=== PATIENT | female | born 1980 | race Caucasian/White ===

== ENCOUNTER → 2017-10-27 | Day surgery (SDC) | payer OTHER ==
[2017-10-23 14:15] VITALS: BMI 24.0
[~2017-10-27] VITALS: Ht 167.6 cm; Wt 69.1 kg
[~2017-10-27] MED LIST: ATROPINE SULFATE 0.1 MG/ML 5ML SYR IV PRN; CLON0.5T20 PO; EpHEDrine SULFATE INJ 50 MG/ML AMP IV PRN; LIDOCAINE HCL 2% 2 ML VIAL (20MG/ML) ONE; PHENERGAN PO; PHENYLEPHRINE 100MCG/ML 5ML SYR ONE; PROPOFOL IV EMULSION 10 MG/ML 20 ML VIAL IV ONE; SODIUM CHLORIDE 0.9% 500ML 500 ML IV ONE; SUCR1TAB29 PO; WELLBUTRIN PO; ZOFRAN PO
[2017-10-27 15:02] VITALS: Ht 167.6 cm; Wt 69.1 kg
[2017-10-27 15:09] VITALS: TEMP 36.3
--- NOTE | 2017-10-27 16:03 | Endo History and Physical ---
History & Physical Date of Service: Oct 27, 2017. Chief Complaint: ABD PAIN/DIARRHEA/WEIGHT LOSS/VOMITING Referring Physician: DR PIERCE History of Present Illness 37 yo CF who presents for Colonoscopy secondary to abdominal pain, diarrhea, and weight loss. Past Surgical History Hx Cardiac Surgery: No Hx Internal Defibrillator: No Hx Pacemaker: No Hx Abdominal Surgery: Yes (APPY, X 2, LAPAROSCOPY X 2) Hx of Implantable Prosthesis: No Hx Post-Op Nausea and Vomiting: No Hx Cancer Surgery: No Hx Thoracic Surgery: No Hx Orthopedic: No Hx Urinary Tract Surgery: No Family History IBD Social History Smoking Status: Current Every Day Smoker Hx Substance Use: No Hx Alcohol Use: Yes (OCCASIONALLY/SOCIALLY) Allergies Coded Allergies: Morphine (Verified Allergy, Unknown, SOB AND DIFFICULT BREATHING WITH CHEST PRESSURE, 10/27/17) Shrimp (Verified Allergy, Unknown, SWELLING, 10/27/17) Current Medications Reported Home Medications Medications Dose Route/Sig Max Daily Dose Days Date Category Dose Instructions Carafate (Sucralfate) 1 Gm Tab 1 Gm PO QID 10/23/17 Reported [Zofran] 1 Tab PO Q8H PRN 10/23/17 Reported [Phenergan] 1 Tab PO Q6H PRN 10/23/17 Reported [Wellbutrin] 1 Tab PO QAM 10/23/17 Reported UNSURE OF DOSE Clonazepam Odt (Clonazepam) 0.5 Mg Tab 0.5 Mg PO BID 10/23/17 Reported Vital Signs Weight (Kilograms): 69.09 Height (Feet): 5 Height (Inches): 6 Date Time Temp Pulse Resp B/P (MAP) Pulse Ox O2 Delivery O2 Flow Rate FiO2 10/27/17 15:09 36.3 71 16 106/57 (73) 100 Room Air Physical Exam General Appearance: WD/WN, no apparent distress Respiratory/Chest: Auscultation: breath sounds normal Cardiovascular: Heart Auscultation: RRR Abdomen: Bowel Sounds: normal Inspection & Palpation: soft, non-distended, no tenderness, guarding & rebound Assessment and Plan Assessment: 37 yo CF who presents for Colonoscopy secondary to abdominal pain, diarrhea, and weight loss. Plan: Proceed with colonoscopy.
--- NOTE | 2017-10-27 16:40 | Discharge Instructions ---
Endoscopy Patient Instructions Date / Procedure(s) Performed Oct 27, 2017. Colonoscopy Allergy Information Coded Allergies: Morphine (Verified Allergy, Unknown, SOB AND DIFFICULT BREATHING WITH CHEST PRESSURE, 10/27/17) Shrimp (Verified Allergy, Unknown, SWELLING, 10/27/17) Discharge Date / Findings Oct 27, 2017. Colon polyps Random colon biopsies Stool studies collected Internal hemorrhoids Medication Instructions OK to resume all medications today as prescribed Reported Home Medications Medications Dose Route/Sig Max Daily Dose Days Date Category Dose Instructions Carafate (Sucralfate) 1 Gm Tab 1 Gm PO QID 10/23/17 Reported [Zofran] 1 Tab PO Q8H PRN 10/23/17 Reported [Phenergan] 1 Tab PO Q6H PRN 10/23/17 Reported [Wellbutrin] 1 Tab PO QAM 10/23/17 Reported UNSURE OF DOSE Clonazepam Odt (Clonazepam) 0.5 Mg Tab 0.5 Mg PO BID 10/23/17 Reported Provider Instructions Activity Restrictions - No exercising or heavy lifting for 24 hours. - Do not drink alcohol the day of the procedure. - Do not drive a car or operate machinery until the day after the procedure. - Do not make any important decisions or sign important papers in 24 hours after the procedure. Following Day: - Return to full activity which may include returning to work/school. Diet Start your diet with liquids and light foods (jello, soup, juice, toast). Then eat your usual diet if not nauseated. Treatment For Common After Affects For mild abdominal pain, bloating, or excessive gas: - Rest - Eat lightly - Lie on right side Follow-Up Information Follow-up with DR PIERCE as scheduled Anesthesia Information What You Should Know You have had a procedure that required some medicine to reduce anxiety and discomfort. This treatment is called moderate sedation. After receiving the treatment, you may be sleepy, but you will be able to breathe on your own. The effects of the treatment may last for several hours. Follow these instructions along with Activity/Diet recommendations noted above: * Do NOT do anything where dizziness or clumsiness would be dangerous. * Rest quietly at home today, then you can be up and about tomorrow. * Have a responsible person stay with you the rest of today. * You may have had an I.V. today. If so, you may take the dressing off later today. Recommendations Call your doctor if: * Trouble breathing * Continuous vomiting for more than 24 hours * Temperature above 101 degrees * Severe abdominal pain or bloating * Pain not relieved by pain medicine ordered * There is increased drainage or redness from any incision * A large amount of rectal bleeding greater than 2-3 tablespoons. (If you had a polyp/s removed or have hemorrhoids, a small amount of blood - from the rectum is to be expected.) * You have any unanswered questions or concerns. IN THE EVENT OF A SERIOUS EMERGENCY, GO TO THE NEAREST EMERGENCY ROOM Your discharge instructions were prepared by provider Jordan Wilson. Patient Instructions Signature Page Meseret Estrada Patient (or Guardian) Signature/Date: I have read and understand the instructions given to me by my caregivers. Caregiver/RN/Doctor Signature/Date: The above-named patient and/or guardian has received patient instructions on this date. + Original Patient Signature Page (only) stays with chart. Please make copy for patient.
--- NOTE | 2017-10-27 16:44 | GI REPORT ---
Procedure Date: 10/27/2017 3:37 PM Procedure: Colonoscopy Indications: Generalized abdominal pain, Chronic diarrhea, Weight loss Medicines: Monitored Anesthesia Care Complications: No immediate complications. Estimated Blood Loss: Estimated blood loss: none. Procedure: Pre-Anesthesia Assessment: - Prior to the procedure, a History and Physical was performed, and patient medications and allergies were reviewed. The patient's tolerance of previous anesthesia was also reviewed. The risks and benefits of the procedure and the sedation options and risks were discussed with the patient. All questions were answered, and informed consent was obtained. Prior Anticoagulants: The patient has taken no previous anticoagulant or antiplatelet agents. ASA Grade Assessment: II - A patient with mild systemic disease. After reviewing the risks and benefits, the patient was deemed in satisfactory condition to undergo the procedure. After I obtained informed consent, the scope was passed under direct vision. Throughout the procedure, the patient's blood pressure, pulse, and oxygen saturations were monitored continuously. The On-site loaner was introduced through the anus and advanced to the terminal ileum. The colonoscopy was performed without difficulty. The patient tolerated the procedure well. The quality of the bowel preparation was good. The terminal ileum, ileocecal valve, appendiceal orifice, and rectum were photographed. Findings: The perianal and digital rectal examinations were normal. Two pedunculated polyps were found in the sigmoid colon. The polyps were 7 to 18 mm in size. These polyps were removed with a hot snare. Resection and retrieval were complete. Biopsies for histology were taken with a cold forceps from the entire colon for evaluation of microscopic colitis. Fluid aspiration for stool studies was performed in the entire colon. Non-bleeding internal hemorrhoids were found during retroflexion. The hemorrhoids were small. Impression: - Two 7 to 18 mm polyps in the sigmoid colon, removed with a hot snare. Resected and retrieved. - Non-bleeding internal hemorrhoids. - Biopsies were taken with a cold forceps from the entire colon for evaluation of microscopic colitis. - Fluid aspiration was performed. Recommendation: - Resume previous diet. - Continue present medications. - Repeat colonoscopy for surveillance based on pathology results. - Return to primary care physician as previously scheduled. Jordan Wilson DO 10/27/2017 4:43:32 PM This report has been signed electronically. Note Initiated On: 10/27/2017 3:37 PM I attest to the content of the Intraoperative Record and orders documented therein, exceptions below
[2017-10-27 17:02] VITALS: BP 111/65; PULSE 63; O2SAT 100
--- NOTE | 2017-10-27 17:10 | Anesthesiology Progress Note ---
Anesthesia Post Op Note Date & Time Oct 27, 2017 at 17:10 Vital Signs Pain Intensity: 0 Vital Signs Past 12 Hours Date Time Temp Pulse Resp B/P (MAP) Pulse Ox O2 Delivery O2 Flow Rate FiO2 10/27/17 16:53 58 16 99/58 (72) 100 Room Air 10/27/17 16:49 49 16 102/62 (75) 100 Room Air 10/27/17 16:44 58 16 98/60 (73) 100 Room Air 10/27/17 15:09 36.3 71 16 106/57 (73) 100 Room Air Notes Mental Status: alert / awake / arousable, participated in evaluation Pt Amnestic to Procedure: Yes Nausea / Vomiting: adequately controlled Pain: adequately controlled Airway Patency, RR, SpO2: stable & adequate BP & HR: stable & adequate Hydration State: stable & adequate Anesthetic Complications: no major complications apparent
== END | disposition home or self-care (01) ==
LOC: C.GI 14:11
PROVIDERS: ATTEND Internal Medicine
DX: R10.84 Generalized abdominal pain (principal); D12.5 Benign neoplasm of sigmoid colon; K64.8 Other hemorrhoids; R19.7 Diarrhea, unspecified; R63.4 Abnormal weight loss; R11.10 Vomiting, unspecified; F17.200 Nicotine dependence, unspecified, uncomplicated; Z88.5 Allergy status to narcotic agent; Z91.013 Allergy to seafood

== ENCOUNTER → 2017-11-13 | Outpatient (CLI) | payer OTHER ==
[~2017-11-13] MED LIST changes: -ATROPINE SULFATE 0.1 MG/ML 5ML SYR IV PRN; -EpHEDrine SULFATE INJ 50 MG/ML AMP IV PRN; -LIDOCAINE HCL 2% 2 ML VIAL (20MG/ML) ONE; -PHENYLEPHRINE 100MCG/ML 5ML SYR ONE; -PROPOFOL IV EMULSION 10 MG/ML 20 ML VIAL IV ONE; -SODIUM CHLORIDE 0.9% 500ML 500 ML IV ONE
--- NOTE | 2017-11-13 10:37 | DIAGNOSTIC IMAGING REPORT ---
GI W/AIR SMALL BOWEL ROUTINE CLINICAL HISTORY: R10.9 Abdominal pain of multiple sites R11.2 Nausea with vomiting 60 pound weight loss COMPARISON STUDY: None FLUOROSCOPY TIME: 2 minutes. NUMBER OF FLUOROSCOPIC IMAGES: 34 FINDINGS: The patient swallowed effervescent granules and barium. No esophageal masses are visualized. No gastric masses or ulcerations are visualized. There is no gastric outlet obstruction. The duodenal bulb appears normal. The patient was an Mr. Enterovue a small bowel follow-through was performed. There are no abnormally dilated loops of jejunum or ileum. Mucosal pattern appears normal. Contrast reaches the colon within 40 minutes. Terminal ileum appear normal. No small bowel abnormalities are identified on fluoroscopic palpation. IMPRESSION: Normal study Electronically signed by: Jerry Lewis M.D. 11/13/2017 10:36 AM Dictated Date/Time: 11/13/2017 10:34 AM
== END | disposition home or self-care (01) ==
LOC: C.RAD 08:55
PROVIDERS: ATTEND Registered Nurse
DX: R63.4 Abnormal weight loss (principal); R07.0 Pain in throat; R11.2 Nausea with vomiting, unspecified; R13.10 Dysphagia, unspecified; R10.9 Unspecified abdominal pain

== ENCOUNTER 2017-11-28 17:19 | Emergency (ER) | payer OTHER ==
[~2017-11-28] VITALS: Ht 163.8 cm; Wt 69.0 kg
[2017-11-28 17:30] VITALS: TEMP 36.9; Ht 163.8 cm; Wt 69.0 kg
[2017-11-28] MEDS ORDERED: KETOROLAC TROMETHAMINE 30 MG/ML VIAL IV STA (18:35)
[2017-11-28] MEDS ORDERED: SODIUM CHLORIDE 0.9% 1000ML 1,000 ML IV STA (18:35)
[2017-11-28] MEDS ORDERED: ONDANSETRON INJ 2 MG/ML 2 ML VIAL IV STA (18:35)
[2017-11-28 19:20] LABS: BASO % 0.2 %; BASO ABS # 0.02 K/uL (0-0.2); EOS % 0.7 %; EOS ABS # 0.08 K/uL (0-0.5); HEMATOCRIT 39.4 % (37-47); HEMOGLOBIN 13.2 g/dL (12.0-16.0); IG# 0.03 K/uL (0.00-0.02); LYMPH % 19.4 %; LYMPH ABS # 2.25 K/uL (1.2-3.4); MEAN CELL VOLUME 85.8 fL (80-100); MEAN CORPUSCULAR HEMOGLOBIN 28.8 pg (25-34); MEAN CORPUSCULAR HGB CONC 33.5 g/dl (32-36); MONO % 4.8 %; MONO ABS # 0.56 K/uL (0.11-0.59); NEUT % 74.6 %; NEUT ABS # 8.65 K/uL (1.4-6.5); PLATELET COUNT 264 K/uL (130-400); RED CELL DISTRIBUTION WIDTH CV 13.8 % (11.5-14.5); RED CELL DISTRIBUTION WIDTH SD 43.3 fL (36.4-46.3); WHITE BLOOD COUNT 11.59 K/uL (4.8-10.8)
[2017-11-28 19:38] LABS: ALBUMIN 4.1 gm/dl (3.4-5.0); CREATININE 0.81 mg/dl (0.60-1.20); POTASSIUM 3.9 mmol/L (3.5-5.1)
[2017-11-28 19:44] LABS: TOTAL PROTEIN 7.3 gm/dl (6.4-8.2)
--- NOTE | 2017-11-28 19:59 | DIAGNOSTIC IMAGING REPORT ---
ABDOMEN LIMITED (US) CLINICAL HISTORY: 37 years-old Female presenting with epigastric pain. TECHNIQUE: Real-time grayscale and limited color Doppler ultrasound imaging of the abdomen limited to the right upper quadrant was performed. COMPARISON: None. FINDINGS: Pancreas: Visualized portions of the pancreatic head and body normal. Liver: Normal echogenicity and echotexture. The liver measures 15.6 cm in maximal sagittal dimension. No sonographic evidence of hepatic mass. Main portal vein patent with normal directional flow. Biliary: No intrahepatic biliary ductal dilatation. Common bile duct measures up to 3 mm in diameter. Gallbladder: No evidence of gallstones, gallbladder wall thickening, gallbladder distention, or pericholecystic fluid or inflammatory change. Right kidney: Cortical thinning suggested. No hydronephrosis. Ascites: None. Other: None. IMPRESSION: 1. No cholelithiasis or biliary ductal dilatation. 2. Suggestion of chronic medical renal disease. Electronically signed by: Zan Adam M.D. 11/28/2017 7:57 PM Dictated Date/Time: 11/28/2017 7:56 PM
[2017-11-28] MEDS ORDERED: GI COCKTAIL PO STA (20:50)
[2017-11-28] MEDS ORDERED: ALUMINUM/MAGNESIUM SUSP 30 ML UDC ONE (21:26)
[2017-11-28] MEDS ORDERED: PANT40TA PO (21:27)
[2017-11-28] MEDS ORDERED: LIDOCAINE HCL 2% VISC SOLN 20 ML UDC ONE (21:27)
--- NOTE | 2017-11-28 21:29 | EMERGENCY ROOM VISIT NOTE ---
History First contact with patient: 18:10 Chief Complaint: ABDOMINAL PAIN Stated Complaint: HIGH ABDOMINAL PAIN AND VOMITING Nursing Triage Summary: being seen by kary benitez and dr barclay for ongoing gi issues. I called today because I am having pain in upper left abdomen again they told me to come to the er to be evaluated History of Present Illness The patient is a 37 year old female who presents to the Emergency Room with complaints of epigastric/left upper quadrant pain which worsened at 12:00 today after lunch. The patient states she has chronic epigastric and right upper quadrant pain, and is being followed by Kary Benitez and Dr. Barclay of gastroenterology. The patient states she contacted the office today because of having pain since eating a hamburger for lunch. She was encouraged to come to the emergency department for evaluation. The patient states she has been evaluated with multiple different tests including an upper GI scope, colonoscopy , and HIDA scan. She states she has tried multiple different medications, and has not found a diagnosis. She does have prescriptions for Bentyl, sucralfate, as well as other medications for her symptoms, but has not taken them today. She denies any history of cholelithiasis, but states her [employer] agent did tell her that they suspected the gallbladder is the cause of the patient's pain. The pain is consistent with pain which has been ongoing for approximately 8 months. She states today it is more intense, and feels like a stabbing pain radiating toward the back. The pain has been worse with food and fluid intake, and feels better with her knees in a flexed position. The patient does report some nausea with vomiting up green bile. She does report 2 loose stools today, but states they were not bloody. She denies any significant flatulence, and states she feels that her abdomen is distended. Her last menstrual period was 2 days ago. She denies any vaginal discharge or pain with intercourse. She does have a history of tubal ligation in 2012, and denies chance of . The patient denies any genitourinary symptoms including urinary frequency, hematuria, dysuria, denies any recent fevers, chills, dyspnea, or chest pain. She states she has lost 40 pounds in the past few months. Review of Systems A complete 10 point review of systems was reviewed with the patient with pertinent positives and negatives as per history of present illness. All else were negative. Past Medical/Surgical History Gastritis, anxiety, chronic abdominal pain Social History Smoking Status: Current Every Day Smoker Smokeless Tobacco Use: No Alcohol Use: occasionally Drug Use: none Marital Status: single Housing Status: lives with family Occupation Status: employed Current/Historical Medications Scheduled Clonazepam (Clonazepam Odt), 0.5 MG PO BID Pantoprazole (Protonix), 40 MG PO DAILY Sucralfate (Carafate), 1 GM PO QID [Wellbutrin], 1 TAB PO QAM Scheduled PRN [Phenergan], 1 TAB PO Q6H PRN for Nausea or Vomiting [Zofran], 1 TAB PO Q8H PRN for Nausea or Vomiting Physical Exam Vital Signs Date Time Temp Pulse Resp B/P (MAP) Pulse Ox O2 Delivery O2 Flow Rate FiO2 11/28/17 23:44 64 12 101/62 95 11/28/17 21:31 66 16 113/56 95 Room Air 11/28/17 18:55 63 13 118/66 98 Room Air 11/28/17 17:30 36.9 82 18 122/63 98 Physical Exam VITALS: Vitals are noted on the nurse's note and reviewed by myself. Vital signs stable. GENERAL: This is a 37-year-old white female, in no acute distress, nondiaphoretic, well-developed well-nourished. SKIN: The skin was without rashes, erythema, edema, or bruising. There is no tenting of the skin. Capillary reflex less than 2 seconds. HEAD: Normocephalic atraumatic. EARS: External auditory canals clear, tympanic membranes pearly trujillo without erythema or effusion bilaterally. EYES: Pupils equal round and reactive to light and accommodation. Conjunctivae without injection, sclerae without icterus. Extraocular movements intact. NOSE: Patent, turbinates without inflammation or discharge. No sinus tenderness. MOUTH: Mucous membranes moist. Tonsils are not enlarged. Pharynx without erythema or exudate. Uvula midline. Airway patent. Tongue does not deviate. NECK: Supple without nuchal rigidity. No lymphadenopathy. No thyromegaly. Cervical spine is nontender. No JVD. HEART: Regular rate and rhythm without murmurs gallops or rubs. No bruits noted on auscultation. LUNGS: Clear to auscultation bilaterally without wheezes, rales or rhonchi. No dullness to percussion. No retractions or accessory muscle use. ABDOMEN: Positive bowel sounds x 4. Normal tympanic percussion. Epigastric discomfort on examination. The abdomen was otherwise soft, nontender, without masses or organomegaly. Cabezas sign negative. No guarding or rebound tenderness. No CVA tenderness. MUSCULOSKELETAL: No muscle atrophy, erythema, or edema noted. Full range of motion without joint tenderness in all extremities. No tenderness to palpation. Normal gait. Strength 5/5 throughout. NEURO: Patient was alert and oriented to person place and time. Normal sensation to light and sharp touch. Deep tendon reflexes 2+ throughout. No focal neurological deficits. Medical Decision & Procedures ER Provider Diagnostic Interpretation: ABDOMEN LIMITED (US) CLINICAL HISTORY: 37 years-old Female presenting with epigastric pain. TECHNIQUE: Real-time grayscale and limited color Doppler ultrasound imaging of the abdomen limited to the right upper quadrant was performed. COMPARISON: None. FINDINGS: Pancreas: Visualized portions of the pancreatic head and body normal. Liver: Normal echogenicity and echotexture. The liver measures 15.6 cm in maximal sagittal dimension. No sonographic evidence of hepatic mass. Main portal vein patent with normal directional flow. Biliary: No intrahepatic biliary ductal dilatation. Common bile duct measures up to 3 mm in diameter. Gallbladder: No evidence of gallstones, gallbladder wall thickening, gallbladder distention, or pericholecystic fluid or inflammatory change. Right kidney: Cortical thinning suggested. No hydronephrosis. Ascites: None. Other: None. IMPRESSION: 1. No cholelithiasis or biliary ductal dilatation. 2. Suggestion of chronic medical renal disease. Electronically signed by: Zan Adam M.D. 11/28/2017 7:57 PM Dictated Date/Time: 11/28/2017 7:56 PM Laboratory Results 11/28/17 19:00 Red Blood Count 4.59, Mean Corpuscular Volume 85.8, Mean Corpuscular Hemoglobin 28.8, Mean Corpuscular Hemoglobin Concent 33.5, Mean Platelet Volume 10.0, Neutrophils (%) (Auto) 74.6, Lymphocytes (%) (Auto) 19.4, Monocytes (%) (Auto) 4.8, Eosinophils (%) (Auto) 0.7, Basophils (%) (Auto) 0.2, Neutrophils # (Auto) 8.65, Lymphocytes # (Auto) 2.25, Monocytes # (Auto) 0.56, Eosinophils # (Auto) 0.08, Basophils # (Auto) 0.02 11/28/17 19:00 Test 11/28/17 18:50 11/28/17 19:00 Urine Color YELLOW Urine Appearance CLEAR (CLEAR) Urine pH 5.0 (4.5-7.5) Urine Specific [place] 1.020 (1.000-1.030) Urine Protein NEG (NEG) Urine Glucose (UA) NEG (NEG) Urine Ketones TRACE (NEG) Urine Occult Blood NEG (NEG) Urine Nitrite NEG (NEG) Urine Bilirubin NEG (NEG) Urine Urobilinogen NEG (NEG) Urine Leukocyte Esterase NEG (NEG) Urine Test NEG (NEG) White Blood Count 11.59 K/uL (4.8-10.8) Red Blood Count 4.59 M/uL (4.2-5.4) Hemoglobin 13.2 g/dL (12.0-16.0) Hematocrit 39.4 % (37-47) Mean Corpuscular Volume 85.8 fL (80-100) Mean Corpuscular Hemoglobin 28.8 pg (25-34) Mean Corpuscular Hemoglobin Concent 33.5 g/dl (32-36) Platelet Count 264 K/uL (130-400) Mean Platelet Volume 10.0 fL (7.4-10.4) Neutrophils (%) (Auto) 74.6 % Lymphocytes (%) (Auto) 19.4 % Monocytes (%) (Auto) 4.8 % Eosinophils (%) (Auto) 0.7 % Basophils (%) (Auto) 0.2 % Neutrophils # (Auto) 8.65 K/uL (1.4-6.5) Lymphocytes # (Auto) 2.25 K/uL (1.2-3.4) Monocytes # (Auto) 0.56 K/uL (0.11-0.59) Eosinophils # (Auto) 0.08 K/uL (0-0.5) Basophils # (Auto) 0.02 K/uL (0-0.2) RDW Standard Deviation 43.3 fL (36.4-46.3) RDW Coefficient of Variation 13.8 % (11.5-14.5) Immature Granulocyte % (Auto) 0.3 % Immature Granulocyte # (Auto) 0.03 K/uL (0.00-0.02) Anion Gap 6.0 mmol/L (3-11) Est Creatinine Clear Calc Drug Dose 91.7 ml/min Estimated GFR () 107.5 Estimated GFR (Non- 92.8 BUN/Creatinine Ratio 12.5 (10-20) Calcium Level 9.0 mg/dl (8.5-10.1) Total Bilirubin 0.4 mg/dl (0.2-1) Aspartate Amino Transf (AST/SGOT) 14 U/L (15-37) Alanine Aminotransferase (ALT/SGPT) 19 U/L (12-78) Alkaline Phosphatase 51 U/L (45-117) Total Protein 7.3 gm/dl (6.4-8.2) Albumin 4.1 gm/dl (3.4-5.0) Globulin 3.2 gm/dl (2.5-4.0) Albumin/Globulin Ratio 1.3 (0.9-2) Lipase 115 U/L (73-393) Medications Administered Medications (Trade) Dose Ordered Sig/Kodi Route Start Time Stop Time Status Last Admin Dose Admin Sodium Chloride 1,000 ml @ 999 mls/hr Q1H1M STAT IV 11/28/17 18:35 11/28/17 19:35 DC 11/28/17 19:05 999 MLS/HR Ketorolac Tromethamine (Toradol Inj) 30 mg NOW STAT IV 11/28/17 18:35 11/28/17 18:36 DC 11/28/17 19:05 30 MG Ondansetron HCl (Zofran Inj) 4 mg NOW STAT IV 11/28/17 18:35 11/28/17 18:36 DC 11/28/17 19:05 4 MG Miscellaneous Medication (Gi Cocktail) 24 ml NOW STAT PO 11/28/17 20:50 11/28/17 20:51 DC 11/28/17 21:30 24 ML ECG Per My Interpretation Indication: abdominal pain Rate (beats per minute): 58 Rhythm: sinus bradycardia Findings: no acute ischemic change, no ectopy Comparison ECG Date: no prior available ED Course The patient was seen and evaluated as above. IV access obtained, labs drawn. EKG performed. This was reviewed and interpreted by myself as above. The patient was given 30 mg Toradol IV, 1 L normal saline solution and 4 mg Zofran IV. Ultrasound performed and reviewed by myself and radiologist as above. The patient was reassessed and is sleeping. Upon awakening, she states her pain is exactly the same. She is lying on her left side. I discussed the findings with the patient at bedside. I advised her that I would be contacting her gastroenterology office for consultation. I consulted with Dr. Drake via phone. He recommended twice daily Protonix, low-fat diet, and a GI cocktail here in the emergency department. He states he does not have any other testing at this point to add, and feels that the patient should consider a surgical consult which can be set up by her primary care provider. I discussed this conversation with the patient at bedside. She was given a GI cocktail. The patient was allowed to rest for approximately 30-40 minutes. She was reassessed and is sleeping again. She is drowsy and difficult to arouse, and upon awakening, states her pain is exactly the same. She states she is very sleepy and is unsure why. She states she does not feel well enough to go home, and asks for stronger pain medication. She does indicate that she is driving, and I advised her that I am unable to give her narcotic pain medication if she is driving. The patient was allowed to rest for another 30-45 minutes. She was reassessed. She was sleeping again. I encouraged her to sit upright, as if this is a gastritis type of discomfort, being propped up would be beneficial. The patient begrudgingly agrees, but requests that the room light be left off. The patient was reassessed after another 35 minutes, and states she feels the same, but she feels that she will be able to drive home at this time. I encouraged her to follow-up outpatient with the surgeon, and provided her with the contact information. Discharge instructions were reviewed, the patient was discharged home in good condition. Medical Decision This is a 37-year-old female patient presents to the emergency department today complaining of chronic epigastric/abdominal pain. The patient states the symptoms have been ongoing for 8-9 months, and worsened again today after eating a hamburger. She states symptoms are always worse after food, and while she does have prescriptions for sucralfate and Bentyl, she has not taken these medications for her worsening symptoms. She was encouraged to come to the emergency department for evaluation, as her [employer] agent suspects the gallbladder as the cause of her symptoms. Workup here in the emergency department was overall negative. Her ultrasound did not show any signs of cholelithiasis or biliary ductal dilation. It does show evidence of chronic medical renal disease, which I did discuss with the patient and encourage follow -up by her PCP. Lab workup revealed very mild leukocytosis of 11,000. Urinalysis did not show any evidence of infection or hematuria. Urine test was negative. CMP did not reveal any significant abnormalities with liver function, renal function, or electrolytes. The patient's AST was 14 and ALT was 19. Alkaline phosphatase was 51. Lipase was normal at 115. Based on the above findings and the patient's symptoms, I do have suspicion for possible gallbladder disease. I did speak with the patient's [employer] agent on-call, and we agreed that outpatient surgical consult was appropriate. I discussed this with the patient. She was difficult to discharge , as she was extremely lethargic and tired, and refused to awaken. I asked why she was so tired, and she states she was uncertain and that this is chronic as well. She did request narcotic pain medication while here in the emergency department, however was unwilling to find a compactor driver, so I was unable to give her any narcotics. Her symptoms did not significantly improve with our treatments, however I suspect a gastritis type of cause, which the patient is not appropriately treating. She is instructed to follow-up outpatient with the surgeon, and was provided with the contact information. I did discuss the case with Dr. Mcghee, we were in agreement with the assessment and plan. Etiologies such as appendicitis, diverticulitis, obstruction, inflammatory bowel disease, renal colic, PUD, biliary pathology, pancreatitis, mesenteric ischemia, aortic pathology, infections, genitourinary, UTI, perforated viscus, as well as others were entertained. The chart was completed utilizing [employer] Speech voice recognition software. Grammatical errors, random word insertions, pronoun errors, and incomplete sentences are an occasional consequence of this system due to software limitations, ambient noise, and hardware issues. Any formal questions or concerns about the content, text, or information contained within the body of this dictation should be directly addressed to the provider for clarification. Medication Reconcilliation Current Medication List: was personally reviewed by me Blood Pressure Screening Patient's blood pressure: Normal blood pressure Impression Primary Impression: Gastritis Departure Information Dispostion Home / Self-Care Condition GOOD Prescriptions Pantoprazole (Protonix) 40 Mg Tab 40 MG PO DAILY for 30 Days, #30 TAB Prov: China Geiger PA-C 11/28/17 Referrals Davis Downs M.D. (PCP) Marga Benitez C.R.N.P. Ramondelli, Salvatore, M.D. Patient Instructions ED Gastritis, My [facility] Additional Instructions You have been treated in the Emergency Department your Abdominal Pain. Laboratory results and imaging studies have ruled out any emergent causes for your abdominal pain which would warrant admission or surgery. As discussed, I did speak with the [employer] agent electronic news gathering editor. His recommendation was for a trial of Protonix for 2-4 weeks with close follow-up by your [employer] agent. He did recommend surgical consult regarding potential removal of the gallbladder, as your workup has overall been negative. Use the Phenergan you have at home for any nausea or vomiting. Please take as directed. For pain control, you can use the following [id number] medicines (if >12 yo): Acetaminophen(Tylenol) may be used for fever or pain. Use 1000mg every six to eight hours as needed. Avoid using more than 3000mg in a 24 hour period. *I do recommend avoiding anti-inflammatory medications (NSAIDs) such as ibuprofen, Motrin, naproxen, Aleve, Advil, as it is possible these could worsen her symptoms. Drink plenty of water and stay well hydrated. Eat a low-fat diet until follow-up with the surgeon. As with any trip to the Emergency Department, you should follow-up with your Primary Care Provider from today's visit. Return to the emergency department if your symptoms persist despite treatment plan outlined above or if the following symptoms occur: increased fevers, chills , worsening nausea/vomiting, blood in your stool or urine. Problem Qualifiers Primary Impression: Gastritis Gastritis type: other gastritis Chronicity: acute Gastritis bleeding: without bleeding Qualified Codes: K29.00 - Acute gastritis without bleeding
[2017-11-28 23:44] VITALS: BP 101/62; PULSE 64; O2SAT 95
== END 2017-11-28 23:45 | disposition home or self-care (01) ==
LOC: C.EDB 17:20 → C.EDC 23:45
DX: K29.00 Acute gastritis without bleeding (principal); G89.29 Other chronic pain; Z98.51 Tubal ligation status; F41.9 Anxiety disorder, unspecified; F17.210 Nicotine dependence, cigarettes, uncomplicated; Z79.899 Other long term (current) drug therapy